=== PATIENT | female | born 1980 | race Caucasian/White ===

== ENCOUNTER 2025-03-15 13:27 | Outpatient (CLI) | payer OTHER, SELFPAY ==
--- NOTE | 2025-03-15 14:30 | NEURO_ITS ---
Impression: # Complains of numbness of hands. ? # Bilateral severe Carpal Tunnel Syndrome. ? # No ulnar neuropathy. ? # Mildly abnormal Needle/EMG exam. Nerve Conduction Studies Anti Sensory Summary Table ?Stim Site NR Peak (ms) P-T Amp (?V) Site1 Site2 Delta-P (ms) Dist (cm) Aj (m/s) Left Median Anti Sensory (2-3nd Digit) Wrist ? 10.5 23.0 Wrist 2-3nd Digit 10.5 14.0 13 Wrist ? 12.5 5.5 Wrist 2-3nd Digit 10.5 14.0 13 Right Median Anti Sensory (2-3nd Digit) Wrist ? 6.4 11.5 Wrist 2-3nd Digit 6.4 14.0 22 Wrist ? 6.6 2.8 Wrist 2-3nd Digit 6.4 14.0 22 Left Radial Anti Sensory (Base 1st Digit) Wrist ? 1.8 16.6 Wrist Base 1st Digit 1.8 0.0 Right Radial Anti Sensory (Base 1st Digit) Wrist ? 2.3 24.4 Wrist Base 1st Digit 2.3 0.0 Left Ulnar Anti Sensory (5th Digit) Wrist ? 2.5 59.3 Wrist 5th Digit 2.5 14.0 56 Right Ulnar Anti Sensory (5th Digit) Wrist ? 2.4 65.8 Wrist 5th Digit 2.4 14.0 58 Motor Summary Table ?Stim Site NR Onset (ms) O-P Amp (mV) Site1 Site2 Delta-0 (ms) Dist (cm) Aj (m/s) Left Median Motor (Abd Poll Brev) Wrist ? 9.5 1.2 Elbow Wrist 0.5 3.0 60 Elbow ? 9.0 2.8 Right Median Motor (Abd Poll Brev) Wrist ? 8.4 2.0 Elbow Wrist 5.4 30.0 56 Elbow ? 13.8 1.2 Left Ulnar Motor (Abd Dig Minimi) Wrist ? 2.5 4.9 A Elbow Wrist 4.9 30.0 61 A Elbow ? 7.4 3.8 B Elbow Wrist 3.8 23.0 61 B Elbow ? 6.3 4.4 Right Ulnar Motor (Abd Dig Minimi) Wrist ? 2.7 8.5 A Elbow Wrist 5.2 30.0 58 A Elbow ? 7.9 7.8 B Elbow Wrist 3.6 21.0 58 B Elbow ? 6.3 6.8 F Wave Studies ?NR F-Lat (ms) L-R F-Lat (ms) Left Median (Mrkrs) (Abd Poll Brev) ? 32.57 1.17 Right Median (Mrkrs) (Abd Poll Brev) ? 33.74 1.17 Left Ulnar (Mrkrs) (Abd Dig Min) ? 30.21 1.12 Right Ulnar (Mrkrs) (Abd Dig Min) ? 31.33 1.12 EMG ?Side Muscle Nerve Root Ins Act Fibs Amp Dur Recrt Comment Right 1stDorInt Ulnar C8-T1 Nml Nml Nml Nml Nml Right Ext Indicis Radial (Post Int) C7-8 Nml Nml Nml Nml Nml Right Ext Digitorum Radial (Post Int) C7-8 Nml Nml Nml Nml Nml Right BrachioRad Radial C5-6 Nml Nml Nml Nml Nml Right PronatorTeres Median C6-7 Nml Nml Nml Nml Nml Right Abd Poll Brev Median C8-T1 Nml Nml Nml >12ms Nml Right ABD Dig Min Ulnar C8-T1 Nml Nml Nml Nml Nml Right FlexPolLong Median (Ant Int) C7-8 Nml Nml Nml Nml Nml Right Abd Poll Long Radial (Post Int) C7-8 Nml Nml Nml Nml Nml Left 1stDorInt Ulnar C8-T1 Nml Nml Nml Nml Nml Left Ext Indicis Radial (Post Int) C7-8 Nml Nml Nml Nml Nml Left Ext Digitorum Radial (Post Int) C7-8 Nml Nml Nml Nml Nml Left BrachioRad Radial C5-6 Nml Nml Nml Nml Nml Left PronatorTeres Median C6-7 Nml Nml Nml Nml Nml Left Abd Poll Brev Median C8-T1 Nml Nml Nml >12ms Nml Left ABD Dig Min Ulnar C8-T1 Nml Nml Nml Nml Nml Left FlexPolLong Median (Ant Int) C7-8 Nml Nml Nml Nml Nml Left Abd Poll Long Radial (Post Int) C7-8 Nml Nml Nml Nml Nml
== END 2025-03-15 13:28 | disposition home or self-care (01) ==
LOC: ANHNEURO 13:29
PROVIDERS: Visit Provider Physician Assistant
DX: G56.03 Carpal tunnel syndrome, bilateral upper limbs (principal)
CPT/HCPCS: 95886; 95911